=== PATIENT | female | born 1960 | race Caucasian/White ===

== ENCOUNTER 2025-01-27 07:23 | Day surgery (SDC) | payer MEDICARE, OTHER, SELFPAY ==
--- NOTE | 2025-01-27 | PATH_ITS ---
[facility] Accession Number: [id number] No. of containers..02 Tissue . 01 Material submitted: . PART A: colon - SIGMOID COLON POLYPS PART B: rectum - RECTAL POLYP . 01 Diagnosis: A. SIGMOID COLON POLYPS: Hyperplastic polyps. . B. RECTAL POLYP: Hyperplastic polyp. MRV 01/29/2025 1151 Local . 01 Electronically signed: . Claribel Jackson MD, Pathologist NPI- [id number] . 01 Gross description: . Part A: SIGMOID COLON POLYPS: Received in formalin are multiple fragment(s) of matute, soft tissue measuring 0.6 x 0.4 x 0.4 cm to 1.2 x 0.6 x 0.6 cm submitted entirely in 1 cassette(s) Part B: RECTAL POLYP: Received in formalin are 4 fragment(s) of matute, soft tissue measuring 0.3 x 0.2 x 0.2 cm to 0.5 x 0.5 x 0.4 cm submitted entirely in 1 cassette(s) /NABEEL 01/28/20252004 Local . 01 Pathologist provided ICD-10: D12.5, D12.8 . 01 CPT . 653874, 115918 Specimen Comment: A courtesy copy of this report has been sent to [facility] Performed at: [address] [address], [place], [place] [id number] MD Gianfranco Cool MD Phone: [phone]
[2025-01-27 08:13] VITALS: BP 131/82; PULSE 88; RESP 16; TEMP 36.3; O2SAT 97
--- NOTE | 2025-01-27 08:55 | P.HP_ITS ---
History of Present Illness History of Present Illness Date Patient Seen: 01/27/25 Time Patient Seen: 08:55 Date of Onset of Symptoms: 01/27/25 Chief complaint: Colonoscopy Narrative: 64-year-old white female presents for screening colonoscopy. Last scope 10 years ago, no polyps reported. [facility] Medical History (Updated 01/27/25 @ 08:56 by Doug Whyte MD) Colon cancer screening (01/27/25) Social History Smoking Status: Current every day smoker alcohol intake: current Meds Home Medications and Allergies Home Medications Medication Instructions Recorded Confirmed Type omeprazole 20 mg capsule,delayed 20 mg PO DAILY PRN acid reflux 01/27/25 01/27/25 History release rosuvastatin 10 mg tablet 10 mg PO ONCE PM 01/27/25 01/27/25 History Allergies Allergy/AdvReac Type Severity Reaction Status Date / Time No Known Drug Allergies Allergy Verified 01/27/25 08:10 Review of Systems Review of Systems ROS: Yes All systems reviewed with the patient and are negative except as otherwise documented Exam Vital Signs (past 8 hours): - 01/27/25 08:13 Temperature 97.3 F L Pulse Rate 88 Respiratory Rate 16 Blood Pressure 131/82 Pulse Oximetry 97 Oxygen Delivery Method Room Air Oxygen Delivery Method Room Air Narrative Exam Narrative: Gen: NAD, sitting comfortably in bed, appears well HEENT: Sclera are anicteric, head is normocephalic and atraumatic, trachea is midline. CV: RRR, no JVD Resp: clear to auscultation bilaterally, equal chest wall movement bilaterally Abd: soft, nontender, normoactive bowel sounds Ext: no edema, full range of motion Neuro: Cranial nerves II-XII grossly intact, no focal deficits Skin: No erythema or ecchymosis Assessment & Plan Assessment and plan (1) Colon cancer screening: Status: Acute Assessment & Plan narrative: Patient presents for colonoscopy Risks, benefits, alternatives to colonoscopy explained, including but not limited to bowel perforation or other serious complication requiring surgery at less than 1 in 5000 colonoscopies, abdominal pain, cramping or bleeding and less than 1% of colonoscopies, and the chances that we find a diagnosis that would require further intervention of about 2%. Patient agrees to proceed. Time-Based Coding :: [TOTAL MINUTES] spent with patient and on the chart (including review of chart, obtaining history, exam, reviewing outside data, placing orders, documenting exam and treatment plan, and counseling patient) on [DATE]. PROFEE Cardiothoracic Physiotherapist Document charge(s): No
[2025-01-27 09:37] VITALS: BP 120/67; PULSE 78; RESP 24; TEMP 36.5; O2SAT 96
--- NOTE | 2025-01-27 09:38 | PM.OP.COLON ---
Operative Date/Time/Diagnoses Date of procedure: 01/27/25 Time of procedure: 09:38 Pre-op diagnosis: Colon screening Post-op diagnosis: same (Multiple polyps) Procedure & Clinicians Study performed: Colonoscopy with hot snare polypectomy of multiple polyps sigmoid and rectum Same procedure as scheduled: Yes Indications: Colon screening Surgeon: Doug Whyte Procedure Notes SCOAP/Timeout: Performed Procedure in detail: Time-out was performed. Mac was induced. Patient was placed in left lateral decubitus position. The perineum was inspected without any gross abnormality. Lubricated pediatric colonoscope was inserted and advanced to the cecum. The terminal ileum was intubated. The colonoscope was withdrawn slowly inspecting the circumference of the colon. Very small polyps may have been missed, prep quality was adequate. Retroflexed view of the rectum showed small, non prolapsed nonbleeding internal hemorrhoids. The scope was withdrawn the patient was taken to PACU in good condition. Scope withdrawal time: 22 Findings: polyp(s) Specimen(s): other (1. Sigmoid colon polyps x5 2. Rectal polyps x2) Complications: none Impression: Multiple polyps Post-procedure Recommendations: Colonoscopy in 3 years Follow up: as needed Disposition: PACU
[2025-01-27 09:45] VITALS: BP 108/70; PULSE 74; RESP 16; O2SAT 98
[2025-01-27 09:49] VITALS: BP 124/70; PULSE 73; RESP 17; TEMP 36.1; O2SAT 97
== END 2025-01-27 10:14 | disposition home or self-care (01) ==
PROVIDERS: PCP Physician Assistant; Referring Provider Surgery; Visit Provider Surgery
PROC: 0DJD8ZZ Inspection of Lower Intestinal Tract, Via Natural or Artificial Opening Endoscopic (ICD-10-PCS; CPT 45378; principal; 2025-01-27 08:45)
DX: Z12.11 Encounter for screening for malignant neoplasm of colon (principal); F17.210 Nicotine dependence, cigarettes, uncomplicated; K64.8 Other hemorrhoids; K63.5 Polyp of colon; K62.1 Rectal polyp
CPT/HCPCS: 45385; J2704